=== PATIENT | female | born 1990 | race Caucasian/White ===

== ENCOUNTER 2019-08-01 19:41 | Emergency (ER) | payer SELFPAY ==
[2019-08-01 19:53] VITALS: BP 134/88; PULSE 102; RESP 16; TEMP 37.6; O2SAT 100
--- NOTE | 2019-08-01 20:12 | ED.WOUNDLAC ---
HPI - Wound/Laceration General Chief Complaint: Extremity Injury, Upper Stated Complaint: injury Time Seen by Provider: 08/01/19 20:03 Source: patient and RN notes reviewed Mode of arrival: ambulatory Limitations: no limitations History of Present Illness HPI narrative: Patient presents today complaining of pain and redness to her left thumb. States she has been deep cleaning her home for the past month it is unsure how she got the wound, or how long it has been there. Pain continues to increase. She currently rates her pain 7/10 which increases with movement. She has been taking ibuprofen with some relief. No recent antibiotic use. Denies numbness or tingling in the finger. Related Data Allergies Allergy/AdvReac Type Severity Reaction Status Date / Time No Known Allergies Allergy Unverified 11/26/18 10:19 Review of Systems Review of Systems: Narrative: CONSTITUTIONAL: Denies body aches, fever, chills, or sweats. EYES: Denies visual changes, redness, or discharge. ENT: Denies rhinorrhea, congestion, sore throat, or otalgia. CARDIOVASCULAR: Denies chest pain, palpitations, or edema. RESPIRATORY: Denies cough or dyspnea. GASTROINTESTINAL: Denies abdominal pain, nausea, vomiting, or diarrhea. GENITOURINARY: Denies dysuria or hematuria. SKIN: Denies rash, itching. + Redness and pain to the left thumb MUSCULOSKELETAL: Denies back pain, joint pain, or myalgia. NEUROLOGIC: Denies headache, numbness, tingling, or weakness. PSYCH: Denies depression or anxiety. PMFSH Comments At time of signature, I have reviewed and agree with nursing past medical, surgical, social and family history unless otherwise noted. Please see nursing chart for further information. There is no relevant family history pertinent to the presenting complaint Exam Narrative: Exam Narrative: GENERAL: Well-appearing, well-nourished, and in no acute distress. HEAD: Normocephalic, atraumatic. EYES: EOMI. No redness or drainage. Conjunctivae normal. ENT: Mucous membranes pink and moist. NECK: Normal AROM. CHEST: No respiratory distress. EXTREMITIES: Left thumb: 0.5 cm scab to the volar aspect of the IPJ with mild surrounding erythema and edema. No induration or active drainage. Full AROM with increased pain. Distal sensation intact. Capillary refill normal. SKIN: Warm, dry, no rash. NEURO: No focal deficits. Alert and oriented x3. Gait steady. PSYCH: Normal affect. No signs of depression or anxiety. Course Vital Signs Vital signs: Vital Signs Temperature 99.7 F H 08/01/19 19:53 Pulse Rate 102 H 08/01/19 19:53 Respiratory Rate 16 08/01/19 19:53 Blood Pressure 134/88 08/01/19 19:53 Pulse Oximetry 100 08/01/19 19:53 Temperature 99.7 F H 08/01/19 19:53 Pulse Rate 102 H 08/01/19 19:53 Respiratory Rate 16 08/01/19 19:53 Blood Pressure 134/88 08/01/19 19:53 Pulse Oximetry 100 08/01/19 19:53 Reviewed. Pt has been instructed to follow up with her PCP regarding her elevated blood pressure today. MDM - Wound/Laceration Differential Diagnosis Differential diagnosis: Likely abscess and other (Cellulitis) Critical Care Time Critical Care Time Critical Care Time: No Discharge Plan Discharge Clinical Impression: Cellulitis of finger of left hand Patient Disposition: Home, Self-Care Condition: Stable Instructions: Antibiotic Form, Cellulitis (DC) Additional Instructions: Please take the Bactrim as prescribed until gone. Take Tylenol or ibuprofen at home for pain or fever. Follow-up with your doctor in 3 to 4 days if symptoms are not improving. Your blood pressure was elevated above 120/80 today at Urgent Care. This puts you above the threshold for follow up. Please schedule a followup visit with your personal physician as soon as possible, for further evaluation and treatment. Even blood pressure exceeding 120/80 may indicate pre-hypertension. Patient Language: Chinese Prescriptions: New
== END 2019-08-01 20:15 | disposition home or self-care (01) ==
PROVIDERS: Emergency Provider Nurse Practitioner; PCP Internal Medicine
DX: L03.012 Cellulitis of left finger (principal)
CPT/HCPCS: 99213; G0463